=== PATIENT | male | born 1985 | race Two or more races ===

== ENCOUNTER 2021-10-04 12:32 | Outpatient (REF) | payer OTHER, MEDICAID, SELFPAY ==
[2021-10-04 14:28] LABS: Anion Gap 10 (12-20); Blood Urea Nitrogen 9 mg/dL (9-16); Calcium 9.3 mg/dL (8.4-10.2); Carbon Dioxide 28 mmol/L (22-29); Chloride 108 mmol/L (96-108); Estimated Glomerular Filt Rate > 60; Glucose Random 95 mg/dL (60-115); Potassium 4.5 mmol/L (3.3-5.1); Sodium 141 mmol/L (135-145)
[2021-10-04 14:33] LABS: Erythrocyte Sedimentation Rate 3 MM/HR (0-15)
[2021-10-05 12:57] LABS: Lyme Abs Screen <0.90 index
[2021-10-06 13:11] LABS: Anti Nuclear Antibody Screen NEGATIVE (NEGATIVE)
== END 2021-10-04 12:33 | disposition home or self-care (01) ==
LOC: HO.LAB 12:32
PROVIDERS: Psychiatry & Neurology Neurology; PCP Internal Medicine; Visit Provider Internal Medicine
DX: G43.009 Migraine without aura, not intractable, without status migrainosus (principal)
CPT/HCPCS: 36415; 80048; 85652; 86038; 86039; 86617; 86618